=== PATIENT | male | born 1960 | race Caucasian/White ===

== ENCOUNTER 2018-11-16 08:59 | Emergency (ER) | payer BC ==
[2018-11-16] MEDS ORDERED: Ondansetron 4 MG/2 ML SDV IVPUSH ONE (09:09)
[2018-11-16] MEDS ORDERED: HYDROmorphone 1 MG/ML Syringe IVPUSH ONE (09:09)
[2018-11-16] MEDS ORDERED: Ondansetron 4 MG/2 ML SDV ONE (09:09)
[2018-11-16] MEDS ORDERED: HYDROmorphone 1 MG/ML Syringe ONE (09:10)
[2018-11-16] MEDS ORDERED: Sodium Chloride 0.9% 1,000 ML IV SCH ×2 (09:30→10:00)
[2018-11-16] MEDS ORDERED: Ketorolac 30 MG/ML SDV IVPUSH ONE (09:49)
--- NOTE | 2018-11-16 09:54 | EDM.PDOC ---
ED HPI GENERAL MEDICAL PROBLEM - General Chief Complaint: Flank Pain Stated Complaint: KIDNEY STONE Time Seen by Provider: 11/16/18 09:51 Source of Information: Reports: Patient History Limitations: Reports: No Limitations - History of Present Illness INITIAL COMMENTS - FREE TEXT/NARRATIVE: pt has a known 3 mm stone low in the rt ureter. He was worked up in [place] on sat. He started having severe pain in the middle of the nite and it is unrelenting. He has passed 2 previous stones in the past year and this is the most severe. Onset: Today, Other (pain restarted in the middle of the nite. ) Duration: Hour(s): Location: Reports: Abdomen, Other ( The pain does go down into his rt testicle. ) Associated Symptoms: Reports: No Other Symptoms - Related Data Allergies Allergy/AdvReac Type Severity Reaction Status Date / Time sulfamethoxazole Allergy Stomach Verified 11/16/18 09:20 [From Bactrim] Ache trimethoprim [From Bactrim] Allergy Stomach Verified 11/16/18 09:20 Ache Home Meds: Home Meds Cetirizine [ZyrTEC] 11/16/18 [History] Fenofibrate Nanocrystallized [Fenofibrate] 11/16/18 [History] Lisinopril 11/16/18 [History] Mometasone Furoate [Asmanex] 11/16/18 [History] Mometasone Furoate [Nasonex [place]] 11/16/18 [History] Montelukast Sodium [Singulair] 11/16/18 [History] Omeprazole 11/16/18 [History] amLODIPine Besylate [Amlodipine Besylate] 11/16/18 [History] Past Medical History Respiratory History: Reports: Asthma Genitourinary History: Reports: Renal Calculus - Past Surgical History Musculoskeletal Surgical History: Reports: Shoulder Surgery Social & Family History - Tobacco Use Smoking Status *Q: Never Smoker ED ROS GENERAL - Review of Systems Review Of Systems: See Below Constitutional: Reports: No Symptoms HEENT: Reports: No Symptoms Respiratory: Reports: No Symptoms Cardiovascular: Reports: No Symptoms Endocrine: Reports: No Symptoms GI/Abdominal: Reports: Other ( severe pain in rt flank which is radiating to the rt testicle. ) : Reports: Other ( severe flank pain. ) Musculoskeletal: Reports: No Symptoms ED EXAM, RENAL/ - Physical Exam Exam: See Below Text/Narrative:: pt started having pain on Saturday. He went to [place] on sat and he had a us of the testicle to r.o a torsion and he had a cat scan of the abdoman which showed a stone at the uV juntion --3 mm--obstructing,. Pt did not have lab work in [place]. In july the pt had a creatnine of 1.4. Exam Limited By: No Limitations General Appearance: Alert, Anxious, Severe Distress, Other ( He once again has pain going down intro the rt testicle. ) Ears: Normal TMs Nose: Normal Inspection Throat/Mouth: Normal Inspection Head: Atraumatic Neck: Normal Inspection Respiratory/Chest: No Respiratory Distress Cardiovascular: Regular Rate, Rhythm GI/Abdominal: Other (pain in the rt flank radiating to the rt testicle. ) (Male) Exam: Deferred, Other ( no swelling or testicle changes. ) Rectal (Males) Exam: Deferred Back Exam: Normal Inspection Extremities: Normal Inspection Neurological: Alert, Oriented, Normal Cognition Course - Vital Signs Last Recorded V/S: Last Vital Signs Temp 36.3 C 11/16/18 09:30 Pulse 76 11/16/18 09:30 Resp 22 H 11/16/18 09:30 BP 155/92 H 11/16/18 09:30 Pulse Ox 97 11/16/18 09:30 - Orders/Labs/Meds Labs: Laboratory Tests 11/16/18 11/16/18 11/16/18 Range/Units 09:17 09:21 09:21 WBC 12.2 H (4.5-11.0) K/uL RBC 4.69 (4.30-5.90) M/uL Hgb 13.7 (12.0-15.0) g/dL Hct 40.0 (40.0-54.0) % MCV 85 (80-98) fL MCH 29 (27-31) pg MCHC 34 (32-36) % Plt Count 213 (150-400) K/uL Neut % (Auto) 86 H (36-66) % Lymph % (Auto) 6 L (24-44) % Taylor % (Auto) 6 (2-6) % Eos % (Auto) 1 L (2-4) % Baso % (Auto) 0 (0-1) % Sodium 141 (140-148) mmol/L Potassium 4.2 (3.6-5.2) mmol/L Chloride 105 (100-108) mmol/L Carbon Dioxide 26 (21-32) mmol/L Anion Gap 10.0 (5.0-14.0) mmol/L BUN 34 H (7-18) mg/dL Creatinine 2.7 H (0.8-1.3) mg/dL Est Cr Clr Drug Dosing 34.67 mL/min Estimated GFR (MDRD) 24 L (>60) Glucose 117 H (74-106) mg/dL Calcium 9.0 (8.5-10.1) mg/dL Total Bilirubin 0.5 (0.2-1.0) mg/dL AST 22 (15-37) U/L ALT 38 (12-78) U/L Alkaline Phosphatase 58 (46-116) U/L Total Protein 7.0 (6.4-8.2) g/dL Albumin 3.5 (3.4-5.0) g/dL Globulin 3.5 (2.3-3.5) g/dL Albumin/Globulin Ratio 1.0 L (1.2-2.2) Urine Color Yellow Urine Appearance Clear Urine pH 5.0 (4.5-8.0) Ur Specific [place] 1.020 (1.008-1.030) Urine Protein Negative (NEGATIVE) mg/dL Urine Glucose (UA) Normal (NEGATIVE) mg/dL Urine Ketones Negative (NEGATIVE) mg/dL Urine Occult Blood Trace (NEGATIVE) Urine Nitrite Negative (NEGAITVE) Urine Bilirubin Negative (NEGATIVE) Urine Urobilinogen Normal (NORMAL) mg/dL Ur Leukocyte Esterase Negative (NEGATIVE) Urine RBC 0-5 (0-5) Urine WBC Not seen (0-5) Ur Epithelial Cells Rare Amorphous Sediment Rare Urine Bacteria Rare Urine Mucus Rare Meds: Medications Discontinued Medications Generic Name Dose Route Start Last Admin Trade Name Freq PRN Reason Stop Dose Admin Hydromorphone HCl 1 mg 11/16/18 09:09 11/16/18 10:00 Dilaudid IVPUSH 11/16/18 09:10 1 mg ONETIME ONE Administration Hydromorphone HCl Confirm 11/16/18 09:10 Dilaudid Administered 11/16/18 09:11 Dose 1 mg .ROUTE .STK-MED ONE Hydromorphone HCl 0.5 mg 11/16/18 13:30 11/16/18 13:59 Dilaudid IVPUSH 11/16/18 13:31 0.5 mg ONETIME ONE Administration Sodium Chloride 1,000 mls @ 999 mls/hr 11/16/18 09:30 11/16/18 09:59 Normal Saline IV 999 mls/hr ASDIRECTED DENAE Administration Sodium Chloride 1,000 mls @ 999 mls/hr 11/16/18 10:00 11/16/18 14:00 Normal Saline IV 999 mls/hr ASDIRECTED DENAE Administration Ketorolac Tromethamine 30 mg 11/16/18 09:49 11/16/18 10:02 Toradol IVPUSH 11/16/18 09:50 30 mg ONETIME ONE Administration Ondansetron HCl 4 mg 11/16/18 09:09 11/16/18 09:59 Zofran IVPUSH 11/16/18 09:10 4 mg ONETIME ONE Administration Ondansetron HCl Confirm 11/16/18 09:09 Zofran Administered 11/16/18 09:10 Dose 4 mg .ROUTE .STK-MED ONE - Re-Assessments/Exams Free Text/Narrative Re-Assessment/Exam: 11/16/18 12:51 pt has received 2 liters of fluid in er. He was found to have a creatnine of 2.8. He had one in july which showed a creatnine of 1.4. His urine does not look infected. He is on the dry side. His pain was relieved with dilaudid 1 mg and torodol 30mg iv. He has been painfree but he has not passed a stone. Departure - Departure Time of Disposition: 13:31 Disposition: DC/Tfer to Acute Hospital 02 Condition: Fair Clinical Impression: Elevated serum creatinine, Hydronephrosis with renal and ureteral calculous obstruction, Dehydration - Discharge Information Referrals: PCP,None [Primary Care Provider] - Forms: ED Department Discharge Care Plan Goals: transfer to hospitalist to [facility]-- consult with Dr huerta - urologists
[2018-11-16] MEDS ORDERED: HYDROmorphone 0.5 MG/0.5 ML Syringe IVPUSH ONE (13:30)
== END 2018-11-16 14:08 ==
LOC: JP.ED 08:59
DX: N13.2 Hydronephrosis with renal and ureteral calculous obstruction (principal); E86.0 Dehydration; R79.89 Other specified abnormal findings of blood chemistry; J45.909 Unspecified asthma, uncomplicated; Z88.1 Allergy status to other antibiotic agents; Z79.899 Other long term (current) drug therapy; Z87.442 Personal history of urinary calculi
CPT/HCPCS: 36415; 80053; 81001; 85025; 96361; 96374; 96375; 96376; 99284; J1170; J1885; J2405; J7030